=== PATIENT | female | born 1960 | race Caucasian/White ===

== ENCOUNTER 2023-04-14 14:42 | Outpatient (OUT) | payer MEDICARE, OTHER, SELFPAY | END 2023-04-14 14:43 | disposition home or self-care (01) | LOC: PST 14:42 | PROVIDERS: Visit Provider Surgery | DX: Z01.818 Encounter for other preprocedural examination (principal); Z12.11 Encounter for screening for malignant neoplasm of colon ==

== ENCOUNTER 2023-04-15 06:22 | Day surgery (SDC) | payer MEDICARE, OTHER, SELFPAY ==
--- OUTSIDE RECORDS SUMMARY | 2023-04-15 06:26 | XMS_ITS | CCD ---
Author Name Unknown Address [address] [place] [address] Organization [facility] Care Team Providers Care Spanish Literature Professor Name Role Phone OSEAS DELONG Attending Unavailable OSEAS DELONG Consulting Unavailable OSEAS DELONG Admitting Unavailable Arabella Smith Unavailable [phone] Unavailable Unavailable Fadia Bradley Unavailable JOSE BURNETT Attending Unavailable TIMOTHY FREED Attending Unavailable JOSE BURNETT Referring Unavailable RADHIKA TAVERA Attending Unavailable RADHIKA TAVERA Referring Unavailable Allergies Allergy Classification Reported Allergen(s) Allergy Type Date of Onset Reaction(s) Facility (3 sources) House dust mite [facility] Phone: Medications Current Medications Medication Drug Class(es) Dates Sig (Normalized) Sig (Original) atorvastatin 20 mg oral tablet (1 source) HMG-CoA Reductase Inhibitor take 1 tablet by mouth every twenty-four hours Atorvastatin Calcium 20 MG 1 tablet Orally Once a day Active cholecalciferol 1.25 mg oral capsule (1 source) Vitamin D take 1 capsule by mouth every other week Vitamin D3 1.25 MG (31675 UT) 1 capsule Orally every 2 weeks Active meloxicam 15 mg oral tablet (1 source) Nonsteroidal Anti-inflammatory Drug take 1 tablet by mouth every twenty-four hours Meloxicam 15 MG 1 tablet Orally Once a day Active methylPREDNISolone 4 mg oral tablet (1 source) Corticosteroid Start: 3 methylPREDNISolone 4 MG as directed Orally for 6 days Jan, Active Completed/Discontinued Medications Medication Drug Class(es) Dates Sig (Normalized) Sig (Original) amphetamine aspartate 5 mg / amphetamine sulfate 5 mg / dextroamphetamine saccharate 5 mg / dextroamphetamine sulfate 5 mg oral tablet (3 sources) Central Nervous System Stimulant Adderall 20 MG Oral Tablet Quantity: 0 Refills: 0 Ordered: 28-Dec-2020 DO Active Glucosamine (3 sources) Glucosamine TABS Quantity: 0 Refills: 0 Ordered: 28-Dec-2020 DO Active Ketorolac (4 sources) Nonsteroidal Anti-inflammatory Drug, Cyclooxygenase Inhibitor Start: 05-24-2019 Toradol per 15 mg May, 30 mg Start: 05-14-2018 Toradol per 15 mg May, 30 mg Start: 03-31-2017 Toradol per 15 mg Mar, Start: 11-14-2016 Toradol per 15 mg Nov, 30 mg Methylphenidate (1 source) Central Nervous System Stimulant Concerta Not-Taking/ PRN Triamcinolone (5 sources) Corticosteroid Start: 05-24-2019 Kenalog -40 mg May, 40 mg Start: 05-14-2018 KENALOG - 10 m g May, 40 mg Start: 03-31-2017 KENALOG - 10 m g Mar, 40 mg Start: 11-14-2016 KENALOG - 10 m g Nov, 40 mg Start: 03-31-2016 KENALOG - 10 m g Mar, 40 mg Problems Problem Classification Problem Date Documented Date Episodic/Chronic Headache; including migraine (1 source) Headache; including migraine; Translations: [HEADACHE UNSPECIFIED] Onset: 03-02-2020 Other connective tissue disease (3 sources) H/O: arthritis; Translations: [Personal history of arthritis] Episodic Other ear and sense organ disorders (3 sources) Mixed conductive AND sensorineural hearing loss; Translations: [Mixed hearing loss, bilateral] Chronic Other ear and sense organ disorders (3 sources) Sensorineural hearing loss, bilateral; Translations: [Sensorineural hearing loss, bilateral] Chronic Other lower respiratory disease (1 source) Cough; Translations: [COUGH] Onset: 03-02-2020 Episodic Other non-traumatic joint disorders (1 source) Pain in right shoulder Episodic Other upper respiratory infections (1 source) Acute frontal sinusitis, unspecified; Translations: [ACUTE FRONTAL SINUSITIS UNSPECIFIED] Onset: 03-02-2020 Episodic Residual codes; unclassified (1 source) Chills (without fever); Translations: [CHILLS WITHOUT FEVER] Onset: 03-02-2020 Episodic Sprains and strains (1 source) Strain of unspecified muscle, fascia and tendon at shoulder and upper arm level, right arm, initial encounter Episodic Unclassified (4 sources) CONTACT W/AND (SUSP) EXPOS COVID-19; Translations: [CONTACT W/AND (SUSP) EXPOS COVID-19] Onset: 02-28-2020 Results Test Name Value Interpretation Reference Range Facility XR THORACIC SPINE 3 VIEWSon 04-11-2023 XR THORACIC SPINE 3 VIEWS FINDINGS: Comparison, April 06, 2021. Minimal S-shaped scoliosis with minimal rotatory component, unchanged. Thoracic vertebral bodies are normal in height. No fracture, dislocation, or bone lesion. Disc spaces maintained. IMPRESSION: Mild degenerative change thoracic spine with mild S-shaped thoracolumbar scoliosis as discussed. ELECTRONICALLY SIGNED BY: Jersey Clemente MD Normal Not Available CBC (INCLUDES DIFF/PLT)on Basophils (Bld) [#/Vol] 0.06 10*3/uL Normal 0-200 [facility] Comment on above: Performed By: #### 6 399, 08345 #### [facility] [place] [address] Goods Layer: Kedar Ribeiro MD Basophils/100 WBC (Bld) 1.0 % Normal [facility] Comment on above: Performed By: #### 6 399, 13467 #### [facility] [place] [address] Goods Layer: Kedar Ribeiro MD Eosinophils (Bld) [#/Vol] 0.072 10*3/uL Normal 15-500 [facility] Comment on above: Performed By: #### 6 399, 84024 #### [facility] [place] [address] Goods Layer: Kedar Ribeiro MD Eosinophils/100 WBC (Bld) 1.2 % Normal [facility] Comment on above: Performed By: #### 6 399, 00163 #### [facility] [place] [address] Goods Layer: Kedar Ribeiro MD Erythrocyte distribution width (RBC) [Ratio] 12.8 % Normal 11.0-15.0 [facility] Comment on above: Performed By: #### 6 399, 69533 #### [facility] of [place] [address] Goods Layer: Kedar Ribeiro MD Hematocrit (Bld) [Volume fraction] 43.0 % Normal 35.0-45.0 [facility] Comment on above: Performed By: #### 6 399, 82624 #### [facility] [place] [address] Goods Layer: Kedar Ribeiro MD Hemoglobin (Bld) [Mass/Vol] 14.1 g/dL Normal 11.7-15.5 [facility] Comment on above: Performed By: #### 6 399, 52209 #### [facility] [place] [address] Goods Layer: Kedar Ribeiro MD Lymphocytes (Bld) [#/Vol] 1.65 10*3/uL Normal 850-3900 [facility] Comment on above: Performed By: #### 6 399, 05058 #### [facility] [place] [address] Goods Layer: Kedar Ribeiro MD Lymphocytes/100 WBC (Bld) 27.5 % Normal [facility] Comment on above: Performed By: #### 6 399, 49589 #### [facility] [place] [address] Goods Layer: Kedar Ribeiro MD MCH (RBC) [Entitic mass] 29.1 pg Normal 27.0-33.0 [facility] Comment on above: Performed By: #### 6 399, 87864 #### [facility] [place] [address] Goods Layer: Kedar Ribeiro MD MCHC (RBC) [Mass/Vol] 32.8 g/dL Normal 32.0-36.0 [facility] Comment on above: Performed By: #### 6 399, 00375 #### [facility] of [address] [place] [address] Goods Layer: Kedar Ribeiro MD MCV (RBC) [Entitic vol] 88.8 fL Normal 80.0-100.0 [facility] Comment on above: Performed By: #### 6 399, 34747 #### [facility] [place] [address] Goods Layer: Kedar Ribeiro MD Monocytes (Bld) [#/Vol] 0.48 10*3/uL Normal 200-950 [facility] Comment on above: Performed By: #### 6 399, 90408 #### [facility] [place] [address] Goods Layer: Kedar Ribeiro MD Monocytes/100 WBC (Bld) 8.0 % Normal [facility] Comment on above: Performed By: #### 6 399, 70205 #### [facility] [place] [address] Goods Layer: Kedar Ribeiro MD Neutrophils (Bld) [#/Vol] 3.738 10*3/uL Normal 9741-0955 [facility] Comment on above: Performed By: #### 6 399, 09776 #### [facility] [place] [address] Goods Layer: Kedar Ribeiro MD Neutrophils/100 WBC (Bld) 62.3 % Normal [facility] Comment on above: Performed By: #### 6 399, 34937 #### [facility] [place] [address] Goods Layer: Kedar Ribeiro MD Platelet mean volume (Bld) [Entitic vol] 10.7 fL Normal 7.5-12.5 [facility] Comment on above: Performed By: #### 6 399, 25939 #### [facility] [place] [address] Goods Layer: Kedar Ribeiro MD Platelets (Bld) [#/Vol] 255 10*3/uL Normal 140-400 [facility] Comment on above: Performed By: #### 6 399, 83357 #### [facility] of [address], [address] [place] [address] Goods Layer: Kedar Ribeiro MD RBC (Bld) [#/Vol] 4.84 10*6/uL Normal 3.80-5.10 [facility] Comment on above: Performed By: #### 6 399, 20039 #### [facility] of [address], [address] [place] [address] Goods Layer: Kedar Ribeiro MD WBC (Bld) [#/Vol] 6.0 10*3/uL Normal 3.8-10.8 [facility] Comment on above: Performed By: #### 6 399, 79938 #### [facility] of [address], [address] [place] [address] Goods Layer: Kedar Ribeiro MD [facility] METABOLIC [facility] 12-27-2022 Albumin [Mass/Vol] 4.2 g/dL Normal 3.6-5.1 [facility] Comment on above: Order Comment: FASTI NG:NO FASTING: NO Performed By: #### 6 399, 78663 #### [facility] [place] [address] Goods Layer: Kedar Ribeiro MD Albumin/Globulin [Mass ratio] 1.9 {ratio} Normal 1.0-2.5 [facility] Comment on above: Order Comment: FASTI NG:NO FASTING: NO Performed By: #### 6 399, 08630 #### [facility] of [address], [address] [place] [address] Goods Layer: Kedar Ribeiro MD ALP [Catalytic activity/Vol] 117 U/L Normal 37-153 [facility] Comment on above: Order Comment: FASTI NG:NO FASTING: NO Performed By: #### 6 399, 99398 #### [facility] of [address], [address] [place] [address] Goods Layer: Kedar Ribeiro MD ALT [Catalytic activity/Vol] 19 U/L Normal 6-29 [facility] Comment on above: Order Comment: FASTI NG:NO FASTING: NO Performed By: #### 6 399, 22114 #### [facility] [address], [address] [place] [address] Goods Layer: Kedar Ribeiro MD AST [Catalytic activity/Vol] 18 U/L Normal 10-35 [facility] Comment on above: Order Comment: FASTI NG:NO FASTING: NO Performed By: #### 6 399, 81521 #### [facility] [address], [address] [place] [address] Goods Layer: Kedar Ribeiro MD Bilirubin [Mass/Vol] 0.4 mg/dL Normal 0.2-1.2 [facility] Comment on above: Order Comment: FASTI NG:NO FASTING: NO Performed By: #### 6 399, 73369 #### [facility] [address], [address] [place] [address] Goods Layer: Kedar Ribeiro MD BUN/CREATININE RATIO SEE NOTE: Normal 08-01 [facility] Comment on above: Order Comment: FASTI NG:NO FASTING: NO Result Comment: Not Reported: BUN and Creatinine are within reference range. Performed By: #### 6 399, 58148 #### [facility] [place] [address] Goods Layer: Kedar Ribeiro MD Calcium [Mass/Vol] 9.4 mg/dL Normal 8.6-10.4 [facility] Comment on above: Order Comment: FASTI NG:NO FASTING: NO Performed By: #### 6 399, 93581 #### [facility] [place] [address] Goods Layer: Kedar Ribeiro MD Chloride [Moles/Vol] 107 mmol/L Normal 98-110 [facility] Comment on above: Order Comment: FASTI NG:NO FASTING: NO Performed By: #### 6 399, 76700 #### [facility] [address], [address] [place] [address] Goods Layer: Kedar Ribeiro MD CO2 [Moles/Vol] 28 mmol/L Normal 20-32 [facility] Comment on above: Order Comment: FASTI NG:NO FASTING: NO Performed By: #### 6 399, 22572 #### [facility] [place] [address] Goods Layer: Kedar Ribeiro MD Creatinine [Mass/Vol] 0.83 mg/dL Normal 0.50-1.05 [facility] Comment on above: Order Comment: FASTI NG:NO FASTING: NO Performed By: #### 6 399, 71187 #### [facility] [place] [address] Goods Layer: Kedar Ribeiro MD GFR/1.73 sq M.predicted among non-blacks MDRD (S/P/Bld) [Vol rate/Area] 79 mL/min/{1.73_m2} Normal > OR = 60 [facility] Comment on above: Order Comment: FASTI NG:NO FASTING: NO Performed By: #### 6 399, 48753 #### [facility] [place] [address] Goods Layer: Kedar Ribeiro MD Globulin (S) [Mass/Vol] 2.2 g/dL Normal 1.9-3.7 [facility] Comment on above: Order Comment: FASTI NG:NO FASTING: NO Performed By: #### 6 399, 61184 #### [facility] [place] [address] Goods Layer: Kedar Ribeiro MD Glucose [Mass/Vol] 105 mg/dL Normal 65-139 [facility] Comment on above: Order Comment: FASTI NG:NO FASTING: NO Result Comment: Non-fasting reference interval For someone without known diabetes, a glucose value between 100 and 125 mg/dL is consistent with prediabetes and should be confirmed with a follow-up test. Performed By: #### 6 399, 39357 #### [facility] [place] [address] Goods Layer: Kedar Ribeiro MD Potassium [Moles/Vol] 4.2 mmol/L Normal 3.5-5.3 [facility] Comment on above: Order Comment: FASTI NG:NO FASTING: NO Performed By: #### 6 399, 44703 #### [facility] [place] [address] Goods Layer: Kedar Ribeiro MD Protein [Mass/Vol] 6.4 g/dL Normal 6.1-8.1 [facility] Comment on above: Order Comment: FASTI NG:NO FASTING: NO Performed By: #### 6 399, 42772 #### [facility] [place] [address] Goods Layer: Kedar Ribeiro MD Sodium [Moles/Vol] 142 mmol/L Normal 135-146 [facility] Comment on above: Order Comment: FASTI NG:NO FASTING: NO Performed By: #### 6 399, 43377 #### [facility] [place] [address] Goods Layer: Kedar Ribeiro MD Urea nitrogen [Mass/Vol] 15 mg/dL Normal 7-25 [facility] Comment on above: Order Comment: FASTI NG:NO FASTING: NO Performed By: #### 6 399, 82501 #### [facility] [place] [address] Goods Layer: Kedar Ribeiro MD Lipid Panelon 06-15-2021 Cholesterol [Mass/Vol] 316 mg/dL High 125-200 [facility] Comment on above: Result Comment: Low risk < 200mg/dL Borderline risk 201-239 mg/dl High risk > or equal to 240 Performed By: #### L IPD #### [facility] [address] [place] [id number] Cholesterol in HDL [Mass/Vol] 68 mg/dL Normal >40 [facility] Comment on above: Result Comment: High Cardiovascular Risk HDL <40 mg/dL Low Cardiovascular Risk HDL > or equal to 60 mg/dl Performed By: #### L IPD #### [facility] [address], [place] [id number] Cholesterol in LDL [Mass/Vol] 209 mg/dL Normal [facility] Specialist Comment on above: Result Comment: LDL ATP III CLASSIFICATION LDL less than 100 mg/dl Optimal LDL 100-129 mg/dl Near or above optimal LDL 130-159 Borderline high LDL 160-189 High LDL greater than 189 mg/dl Very High Performed By: #### L IPD #### [facility] [address] [place], [place] [id number] Cholesterol in VLDL [Mass/Vol] 39 mg/dL Normal [facility] Comment on above: Performed By: #### L IPD #### [facility] [address] [place], [place] [id number] Cholesterol.total/C holesterol in HDL [Mass ratio] 5 {ratio} Normal [facility] Comment on above: Performed By: #### L IPD #### [facility] [address] [place], [place] [id number] Triglyceride [Mass/Vol] 194 mg/dL High 30-150 [facility] Comment on above: Result Comment: TRIG ATPIII CLASSIFICATIONS TRIG less than 150 mg/dl Normal TRIG 150-199 mg/dl Borderline High TRIG 200-500 mg/dl High TRIG greather than 500 mg/dl Very High Performed By: #### L IPD #### [facility] [address] [place], [place] [id number] Q - Aged based pap with appr opriate addition of HPVon 06-15-2021 COMMENT SEE NOTE Normal [facility] Comment on above: Order Comment: [facility] at: [facility], [address] [place] [address], [address] [place] [address] - [place], [address], Top Ironer: Kedar Ribeiro MD [facility] Date/Time: [facility] Results Received Date/Time: [facility] Reported Date/Time: FASTING: NO Result Comment: This order for age-based cervical cancer and STI screening follows ACOG guidelines(PB 168, 140, AVG797). See individual assays for performing site location. Performed By: #### 9 5814, 89040 #### [facility] [address] [place] [address] Result Comment: EXPL ANATORY NOTE: The Pap is a screening test for cervical cancer. It is not a diagnostic test and is subject to false negative and false positive results. It is most reliable when a satisfactory sample, regularly obtained, is submitted with relevant clinical findings and history, and when the Pap result is evaluated along with historic and current clinical information. Q - THINPREP(R) TIS AND HPV MRNA E6/E7 RFL HPV 16/18/45on 06-15-2021 CLINICAL INFORMATION: None given Normal [facility] Comment on above: Order Comment: [facility] performed at: [facility], [address] [place] [address], [address] [place] [address], [address] [place] [address], Top Ironer: Kedar Ribeiro MD [facility] Date/Time: [facility] Received Date/Time: [facility] Reported Date/Time: FASTING: NO Performed By: #### 9 1384, 82656 #### [facility] [address] [place] [address] COMMENT: SEE NOTE Normal [facility] Comment on above: Order Comment: [facility] performed at: [facility], [address] [place] [address], [address] [place] [address], [address] [place] [address], Top Ironer: Kedar Ribeiro MD [facility] Date/Time: [facility] Received Date/Time: [facility] Reported Date/Time: FASTING: NO Result Comment: This Pap test has been evaluated with computer assisted technology. Parabasal cells in smears that lack maturation due to atrophy or other hormonal reasons cannot be differentiated from transformation zone cells. Accordingly, presence or absence of endocervical or transformation zone components cannot be reported in this patient. Performed By: #### 9 1384, 47741 #### [facility] [address] [place] [address] DIRECTIONAL DRILL OPERATOR: SEE NOTE Normal [facility] Comment on above: Order Comment: [facility] performed at: [facility], [address] [place] [address], [address] [place] [address], [address] [place] [address], Top Ironer: Kedar Ribeiro MD [facility] Date/Time: [facility] Received Date/Time: [facility] Reported Date/Time: FASTING: NO Result Comment: DMK, CT(ASCP) CT screening location: [place] [address]. Performed By: #### 9 1384, 70357 #### [facility] [address] [place] [address] HPV mRNA E6/E7 Not detected Normal Not Detected [facility] Comment on above: Order Comment: [facility]: [facility], [address] [place] [address], Top Ironer: Kedar Ribeiro MD [facility] Date/Time: [facility] Received Date/Time: [facility] Reported Date/Time: FASTING: NO Result Comment: Meth odology: All Source Intelligence Technician-Mediated Amplification This assay detects E6/E7 viral messenger RNA (mRNA) from 14 high-risk HPV types (16,18,31,33,35,39,45,51,52,56,58,59,66,68). The analytical performance characteristics of this assay have been determined by [facility]. The modifications have not been cleared or approved by the FDA. This assay has been validated pursuant to the CLIA regulations and is used for clinical purposes. For additional information, please refer to http://education.ME911.[place]/faq/GYC914t9 (This link if provided for information/ educational purposes only.) Performed By: #### 9 1384, 84151 #### [facility] [address] [place] [address] INTERPRETATION/RESU LT: SEE NOTE Normal [facility] Comment on above: Order Comment: [facility] performed at: [facility], [address] [place] [address], [address] [place] [address], Top Ironer: Kedar Ribeiro MD [facility] Date/Time: [facility] Results Received Date/Time: [facility] Reported Date/Time: FASTING: NO Result Comment: Nega tive for intraepithelial lesion or malignancy. Atrophic pattern; predominantly parabasal cells Performed By: #### 9 1384, 88938 #### [facility] [address] [place] [address] LMP: None given Normal [facility] Comment on above: Order Comment: [facility] performed at: [facility], [address] [place] [address], [address] [place] [address], [address] [place] [address], Top Ironer: Kedar Ribeiro MD [facility] Date/Time: [facility] Received Date/Time: [facility] Reported Date/Time: FASTING: NO Performed By: #### 9 1384, 82195 #### [facility] [address] [place] [id number] PREV. BX: None given Normal [facility] Comment on above: Order Comment: [facility] performed at: [facility], [address] [place] [address], [address] [place] [address], [address] [place] [address], Top Ironer: Kedar Ribeiro MD [facility] Date/Time: [facility] Received Date/Time: [facility] Reported Date/Time: FASTING: NO Performed By: #### 9 1384, 64350 #### [facility] [address] [place] [id number] PREV. PAP: None given Normal [facility] Comment on above: Order Comment: [facility] performed at: [facility], [address] [place] [address], [address] [place] [address], [address] [place] [address], Top Ironer: Kedar Ribeiro MD [facility] Date/Time: [facility] Received Date/Time: [facility] Reported Date/Time: FASTING: NO Performed By: #### 9 1384, 71089 #### [facility] [address] [place] [address] SOURCE: None given Normal [facility] Comment on above: Order Comment: [facility] performed at: [facility], [address] [facility], [address] [place] [address] - [address] , [place], [address], Top Ironer: Kedar Ribeiro MD [facility] Date/Time: [facility] Received Date/Time: [facility] Reported Date/Time: FASTING: NO Performed By: #### 9 1384, 81034 #### [facility] [address] [place] [address] XR Chest 2 Views*on 06-16-19 22 XR Chest 2 Views* HISTORY: Cough, ches t congestion FINDINGS: Mild peribronchial cuffing is present, which may suggest bronchitis. No focal infiltrates or worrisome mass lesions are seen. No pneumothorax is present. Mild right lower lobe subsegmental atelectasis. Cardiac silhouette, skeletal structures and soft tissues are unremarkable. IMPRESSION: 1. Peribronchial appearance, which at this age can be a nonspecific finding. In the appropriate clinical setting, bronchitis may be considered. 2. No alveolar infiltrates or parenchymal consolidation. Report reported and signed by Reza Kilgore on 06/15/2021 1059 Normal [facility] SCREENING MAMMOGRAM W/JESSY, BILATERAL*on 04-06-2021 SCREENING MAMMOGRAM W/JESSY, BILATERAL* COMPARISON: Dating back to February 18, 2020 and October 01, 2018 TECHNIQUE: 2D and 3D Tomosynthesis of the right and left breasts was performed. FINDINGS: Breast composition demonstrates scattered fibroglandular densities. Stable. Typically benign calcifications. No suspicious microcalcifications, asymmetry, architectural distortion or associated features are present. IMPRESSION: BI RADS 2 : BENIGN MAMMOGRAM Board Certified Radiologist. Accredited by the ACR and FDA. MAMMOGRAPHY IS VERY IMPORTANT TO YOUR HEALTH. THE CURRENT [employer] GUIDELINES RECOMMENDS ANNUAL MAMMOGRAPHY BEGINNING AT AGE 40. THIS FACILITY USES A REMINDER SYSTEM TO ENSURE ALL PATIENTS RECEIVE REMINDER NOTIFICATIONS AT THE APPROPRIATE TIME BASED ON THE RECOMMENDATIONS OF THIS EXAM. Report reported and signed by Reza Kilgore on 04/06/2021 1040 Normal [facility] XR Spine Thoracic 3 Views*on 04-06-2021 XR Spine Thoracic 3 Views* FINDINGS: Thoracolumbar scoliosis, apex leftward at T10 and rightward at L2 (both approximating 15 degrees). Minimal rotatory component. No fracture. Mild end plate sclerosis within primarily the mid thoracic region and thoracolumbar junction. IMPRESSION: 1. Mild scoliosis, arthritis. 2. No fracture. Report reported and signed by Reza Kilgore on 04/06/2021 1044 Normal [facility] Established Visit (Otolaryng ology)on 12-28-2020 Established Visit (Otolaryngology) Diagnoses/Problems Bilateral sensorineural hearing loss (389.18) (H90.3) Orders Tobacco Use Screening; Status:Complete; Done: 28Dec2020 Provider Impressions Left-sided mixed hearing loss Right mild sensorineural hearing loss Bilateral eustachian tube dysfunction Discussed with the patient on exam there is no significant fluid or significant retraction. I do think she has mild bilateral eustachian tube dysfunction. In terms of her hearing loss profile, my recommendation is to consider hearing amplification using hearing aids. We generated a referral for that today she is medically cleared to use the hearing aids. If the problems worsen in the left ear then we did discuss possibility of a tympanostomy tube in that ear Chief Complaint hearing loss History of Present IllnessThis patient has been referred for further evaluation of progressive hearing loss. She has a history of tympanostomy tubes as a child. In recent years she has noticed progressive hearing decline mainly in the left ear. She does struggle to communicate and feels like there is significant hearing handicap. She denies any drainage, otorrhea, vertigo or dizziness Review of Systems A comprehensive 10-point review of systems was obtained including constitutional, neurological, HEENT, pulmonary, cardiovascular, genito-urinary, and other pertinent systems and was negative except as noted in the HPI. 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) (H90.A32) Past Medical History History of arthritis (V13.4) (Z87.39) Surgical History History of Anterior cruciate ligament repair History of Appendectomy History of Ear pressure equalization tube insertion bilateral History of Hysterectomy History of Knee replacement History of Tonsillectomy with adenoidectomy Family History Family history of Family history of cardiac pacemaker (V17.49) (Z82.49) Family history of diabetes mellitus (V18.0) (Z83.3) Family history of Family history of Heart problem Family history of Family history of arthritis (V17.7) (Z82.61) Family history of cystic fibrosis (V18.19) (Z83.49) Family history of Lupus Social History Drinks wine (V49.89) (Z78.9) Never smoked cigarettes (V49.89) (Z78.9) Retired from employment Allergies No Known Drug Allergies Recorded By: Ofe Shaver; 12/28/2020 3:20:14 PM Dust Mite Recorded By: Ofe Shaver; 12/28/2020 3:20:14 PM Current Meds Medication NameInstruction Adderall 20 MG Oral Tablet Glucosamine TABS Vitals Vital Signs Recorded: 28Dec2020 03:51PM Vwjijutcdma52.1 F Height5 ft 3 in Ckdepr995 lb BMI Fwhewlpqje43.39 kg/m2 BSA Calculated1.71 Tobacco Useb) No Fall Screeninga) No falls within the last year Pain Scale0/10 Physical Exam Constitutional Vitals as documented above General Appearance: normal development, appropriate nutrition, body habitus, and grooming. 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 Otoscopic Exam: Right EAC patent without disease, TM intact without perforation, retraction, infection, or effusion, appropriate mobility. Left EAC patent without disease, TM intact without perforation, retraction, infection, or effusion, appropriate mobility. Assessment of hearing: See audiogram below Nose, Mouth and Throat Nasal inspection:deferred due to COVID Inspection of lips, teeth, gums: deferred due to COVID Examination of oropharynx: deferred due to COVID Pharyngeal grady: deferred due to COVID Mirror exam of larynx: deferred Mirror exam of nasopharynx: deferred Neck Neck exam: no masses, normal appearance and symmetry, normal tracheal position, no crepitus Thyroid exam: no enlargement, tenderness or mass palpated Respiratory Inspection of chest: symmetric, normal expansion and effort Cardiovascular Observation or peripheral vascular system: no obvious swelling or edema Lymphatic Palpation of lymph nodes in neck: no significant adenopathy palpated Neurologic Orientation to time, place, person appropriate Mood and affect: appropriate CN assessment II-XII shows no deficits bilaterally Results/Data I reviewed her audiogram which shows mild to moderate left-sided mixed hearing loss with preserved speech recognition score of 92% on the right side she has mild sensorineural hearing loss with speech recognition score of 100% 'Scores and Scales' Signatures Electronically signed by : Zain Luciano MD; Nov (more content not included)... Normal [facility] Visit (Audiology)on 02-28-2020 Follow-up visit Diagnoses/Problems Mixed conductive and sensorineural hearing loss of left ear with restricted hearing of right ear (389.22) (H90.A32) Bilateral sensorineural hearing loss (389.18) (H90.3) Patient Discussion/Summary Today's results were discussed with Uday indicating a mild to moderate sensorineural hearing loss in the right ear and a moderate mixed hearing loss in the left ear. Excellent word understanding and normal tympanograms bilaterally. Treatment Plan: 1. Follow-up with ENT 2. Retest hearing in conjunction with medical management 3. Consider binaural amplification [id number] Chief Complaint hearing test Adult Risk ScreeningThere are no spiritual/cultural practices/values/need s that are important to know Initial Fall Risk Screening: Screening not indicated for medical reasons. Reference Documentation See scanned note Procedure Note: audiogram. History of Present Illness Uday, 60 years old, was seen for a hearing test prior to an appointment with Dr. Luciano. She reports a history of hearing loss for several decades worse in the left ear. She reports having pressure-equalization tubes placed as a child. She reports constant chirping tinnitus that is bothersome. She reports her family notices her hearing loss. She denies vertigo. 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 Patient's preferred language: Uzbek Preferred language of the parent, legal guardian or surrogate decision-maker of this minor or incapacitated patient: Not Applicable No overt signs of domestic violence/neglect/abus e. No referral made to Basic Acoustic Analyst. Pain not interfering with optimal level of function or ability to assess and/or treat. Pain Scale rank: 0/10 Pain Scale used: Numeric No referral made to primary care provider (PCP). Factors/Barriers influencing patient's ability to complete assessment or learn: none. Person taught: patient. Readiness to learn: no barriers. Results of Teaching/Counseling: verbalize recall / understanding and teaching complete. Procedure Otoscopy revealed mild debris with visible tympanic membranes, bilaterally. Tympanometry: Right Ear: Normal middle ear function with normal ear canal volume, peak pressure, and hyper compliance. Left Ear: Normal middle ear function with normal ear canal volume, peak pressure, and hyper compliance. Ipsilateral Acoustic Reflexes: could not maintain seal Behavioral Hearing Evaluation: Right Ear: mild to moderate sensorineural hearing loss. Excellent word understanding (100%) at 70 dB HL. Left Ear: moderate mixed hearing loss. Excellent word understanding (92%) at 80 dB HL. Speech tunnel heading supervisor threshold (30 dB HL in the right and 50 dB HL in the left) in agreement with pure tone averages. Signatures Electronically signed by : Yoana Oropeza,RUBÉN-A; Dec 28 2020 2:26PM EST (Author) Normal [employer] Tobacco Screening.on 021 Fall risk assessment a) No falls within the last year ES-Zitdvnenw-Fni tlake 2460 Work Phone: Tobacco use status CP b) No BB-Iuknxjoap-Zac tlake 2460 Work Phone: XR thoracic spine 3V*on 09-11 XR thoracic spine 3V* [facility] Main [place] [address] [place] [address] XRay Report Signed Patient: Uday Byrd MR#: [id number] : 1960 Acct:[id number] Age/Sex: 60 / F ADM Date: 10/07/20 Loc: XDUCLY Room: Type: [facility] Attending Dr: Lacey العلي Ordering Provider: LACEY MANDUJANO Date of Service: 10/07/20 XR/XR thoracic spine 3V*: Mid back pain Copies to: LACEY MANDUJANO TREE WRAPPER-C Thoracic spine 10/07/2020. CLINICAL DATA: Mid back pain after fall. FINDINGS: 3 views of the thoracic spine were obtained. There is mild lower thoracic spinal curvature. Vertebral alignment is normal. Mild disc space narrowing and discovertebral degenerative changes are identified. No acute vertebral fracture is seen. No paraspinal soft tissue mass is noted. XR/XR thoracic spine 3V* IMPRESSION: Mild curvature and degenerative changes. No acute bony abnormality. Impression dictated by: Panchito Sales Jr., M.D.10/07/2020 12:53 PM Dictation Location: [place] [address] Transcribed By: [facility] 10/07/20 1253 Dictated By: Panchito Sales Jr, MD 10/07/20 1251 Signed By: 10/07/20 1253 [facility] Covid-19 PCR (CVDTBH)on 02-10 Covid-19 PCR NOT DETECTED Normal NOT DETECTED [facility] Comment on above: Result Comment: This test is not yet approved or cleared by the [place] FDA. When there are no FDA-approved or cleared tests available, and other criteria are met, FDA can make tests available under an emergency access mechanism called an Emergency Use Authorization (EUA). The EUA for this test is supported by the [place] of Health and Human Service's (HHS's) declaration that circumstances exist to justify the emergency use of in vitro diagnostics for the detection and/or diagnosis of the virus that causes COVID-19. This EUA will remain in effect (meaning this test can be used) for the duration of the COVID-19 declaration justifying emergency of IVDs, unless it is terminated or revoked by FDA (after which the test may no longer be used). Performed By: #### [facility] #### [facility] [address] [place] [address] Gio Suazo EUA Statement SEE BELOW Normal [facility] Comment on above: Result Comment: This test is not yet approved or cleared by the [place] FDA. When there are no FDA-approved or cleared tests available, and other criteria are met, FDA can make tests available under an emergency access mechanism called an Emergency Use Authorization (EUA). The EUA for this test is supported by the Senior Security Analyst of Health and Human Service?s (HHS?s) declaration that circumstances exist to justify the emergency use of in vitro diagnostics for the detection and/or diagnosis of the virus that causes COVID-19. This EUA will remain in effect (meaning this test can be used) for the duration of the COVID-19 declaration justifying emergency of IVDs, unless it is terminated or revoked by FDA (after which the test may no longer be used). When diagnostic testing is negative, the possibility of a false negative should be considered in the context of a patients recent exposures and the presence of clinical signs and symptoms consistent with SARS-CoV-2. Performed By: #### C [facility] #### [facility] [address] [place] [address] Gio Lakeisha Vital Signs Date Time Vital Sign Value Performing Clinician Facility 02-09-2023 14:50-0500 Body height 160.02 cm Fadia Bradley Other [employer] Other 02-09-2023 14:50-0500 Body mass index (BMI) [Ratio] 29.72 kg/m2 Fadia [employer] Other [employer] Other 02-09-2023 14:50-0500 Body temperature 95.9 [degF] Fadia Bradley Other [employer] Other 02-09-2023 14:50-0500 Body weight 76.11 kg Fadia Bradley Other [employer] Other 02-09-2023 14:50-0500 Diastolic blood pressure 87 mm[Hg] Fadia Bradley Other [employer] Other 02-09-2023 14:50-0500 Respiratory rate 16 /min Fadia Bradley Other [employer] Other 02-09-2023 14:50-0500 SaO2% (BldA) [Mass fraction] 94 % Fadia Bradley Other [employer] Other 02-09-2023 14:50-0500 Systolic blood pressure 154 mm[Hg] Fadia Bradley Other [employer] Other 12-28-2020 15:51-0500 Body height 160.02 cm Arabella Smith Work Phone: JN-Oxrdsvwhu-Xjiihmy e 2460 Work Phone: 12-28-2020 15:51-0500 Body mass index (BMI) [Ratio] 26.39 kg/m2 Arabella Smith Work Phone: DJ-Ycsttpqys-Kzdakid e 2460 Work Phone: 12-28-2020 15:51-0500 Body surface area Derived from formula 1.71 m2 Arabella Smith Work Phone: WD-Sftgijsuz-Jmfjryr e 2460 Work Phone: 12-28-2020 15:51-0500 Body temperature 97.1 [degF] Arabella Smith Work Phone: YX-Iaahtgmxx-Sdffzos e 2460 Work Phone: 12-28-2020 15:51-0500 Body weight 67.59 kg Arabella Smith Work Phone: QJ-Eomdocahj-Omufcdu e 2460 Work Phone: 12-28-2020 15:51-0500 0 1 Arabella Smith Work Phone: LU-Zfdmpskat-Emstekj e 2460 Work Phone: Comment on above: [employer] Encounters Encounter Date Encounter Type Care Provider Facility Start: 04-11-2023 End: 04-11-2023 ambulatory RADHIKA TAVERA Not Available Start: 04-09-2023 End: 04-09-2023 ambulatory TIMOTHY FREED Not Available Start: 04-02-2023 End: 04-02-2023 ambulatory JOSE BURNETT Not Available Start: 02-09-2023 End: 02-09-2023 ambulatory Fadia Bradley Other [employer] Other Start: 02-09-2023 Office outpatient vi sit 25 minutes Fadia Bradley [facility] Start: 12-28-2020 Office outpatient ne w 30 minutes Arabella Smith Work Phone: SX-Kqjllqqjyolwgf-Dsadqk ke Work Phone: Start: 12-28-2020 Patient encounter procedure Arabella Smith Work Phone: JS-Tbewwezqdyziyc-Hgmydt ke Work Phone: Start: 12-28-2020 [facility] visit new patient Osorio Smith Work Phone: HX-Vfkcdudmd-Upvlnlah 2460 Work Phone: Start: 02-28-2020 End: 02-28-2020 Patient encounter procedure [facility] Facility: Procedures Date Procedure Procedure Detail Performing Clinician Appendectomy Arabella roberson Work Phone: Arthroplasty of knee Osorio Smith Work Phone: Hysterectomy Arabella roberson Work Phone: Myringotomy and inse rtion of T tube Arabella Smith Work Phone: Repair of anterior c ruciate ligament of knee joint Arabella Smith Work Phone: Tonsillectomy and adenoidectomy Arabella Smith Work Phone: Payers Date Payer Category Payer Medicare [id number] 2023 Unknown [id number] 1961 Unknown [id number] 1960 Unknown [id number] 2.16.84 [id number] 1960 Unknown [id number] 2.16.84 [id number] 1960 Unknown [id number] 2.16.84 [id number] 1960 Unknown [id number] 2.16.84 [id number] 1960 Unknown [id number] 2.16.84 [id number] Unknown COMMERCIAL Unknown [id number] 2.16.8 [id number] Social History Date Type Detail Facility Drinks wine Drinks wine BF-Otkigltmr-Em st[place] 3747 Work Phone: Sex Assigned At Sex Assigned At [facility] th [employer] Other Evaluation note 02-09-2023 Note Date & Type Note Facility 02-09-2023 Evaluation note Encounter Date Diagnosis Assessment Notes Jan, Acute pain of right shoulder (ICD-10 - M25.511) Jan, Strain of right shoulder, initial encounter (ICD-10 - S46.911A) Discussed diagnosis with patient today in office. No imaging performed today. Advised patient that she likely has some brachial plexus inflammation secondary to shoulder strain. Will send in Rx of Medrol Dosepak to use as directed. Use OTC Tylenol in addition as needed, heat/ice application, perform activities as tolerated. Follow up with PCP in 1 week if symptoms do not improve. Immediate evaluation in ER for signs/symptoms as discussed. Patient verbalizes understanding and is agreeable with treatment plan [employer] Other Clinical Note 11-29-2021 Note Date & Type Note Facility 11-29-2021 Note HISTORY: Bilateral t innitis, hearing loss, worsening double vision PROCEDURE: Multiplanar, multisequence imaging including routine T1, T2 without contrast. FINDINGS: No worrisome intra- or extra-axial mass lesions, mass effect or hemorrhage identified. No evidence of major vessel ischemia is noted. Periventricular and subcortical white matter is normal without significant small vessel ischemic or demyelination changes. Ventricular size is normal for this age, and commensurate with the cerebral sulci. Normal signal flow void is present within the major cerebral vessels. Corpus callosum, cynthia, midbrain sellar contents and suprasellar cistern are normal. The 7th and 8th cranial nerve complexes, internal auditory canals are unremarkable. Calvarium, mastoid air cells, paranasal sinuses and orbital contents are unremarkable. IMPRESSION: 1. Normal brain/internal auditory canals 2. Normal paranasal sinuses and mastoid air cells Report reported and signed by Reza Kilgore on 11/29/2021 1135 [facility] Attendant Clinical Note 06-15-2021 Note Date & Type Note Facility 06-15-2021 Note SATISFACTORY FOR EVALUATION [facility] Comment on above: Order Comment: [facility] performed at: [facility], [address] [place] [address], [address] [place] [address] - [place], [address], Top Ironer: Kedar Ribeiro MD [facility] Collection Date/Time: [id number] [facility] Results Received Date/Time: [facility] Reported Date/Time: FASTING: NO Performed By: #### 9 1384, [id number] #### [facility] Default [address] [place] [address] History general Narrative - Reported Note Date & Type Note Facility History general Narrative - Reported Type Medical History ADD Medical History hyperlipidemia Surgical History appendectomy Surgical History T & A Surgical History BILATERAL ACL KNEE SURGERY Surgical History HYSTERECTOMY Hospitalization History SEE ABOVE [employer] Other History of Present illness Narrative Note Date & Type Note Facility History of Present illness Narrative Uday, 60 years old, was seen for a hearing test prior to an appointment with Dr. Luciano. She reports a history of hearing loss for several decades worse in the left ear. She reports having pressure-equalization tubes placed as a child. She reports constant chirping tinnitus that is bothersome. She reports her family notices her hearing loss. She denies vertigo. 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.Patient's preferred language: EnglishPreferred language of the parent, legal guardian or surrogate decision-maker of this minor or incapacitated patient: Not ApplicableNo overt signs of domestic violence/neglect/abuse.No referral made to Basic Acoustic Analyst.Pain not interfering with optimal level of function or ability to assess and/or treat.Pain Scale rank: 0/10Pain Scale used: NumericNo referral made to primary care provider (PCP).Factors/Barriers influencing patient's ability to complete assessment or learn: none.Person taught: patient.Readiness to learn: no barriers.Results of Teaching/Counseling: verbalize recall / understanding and teaching complete. MP-Jqrecqjba-Ciiucerw 9752 Work Phone: History of Present illness Narrative Note Date & Type Note Facility History of Present illness Narrative This patient has been referred for further evaluation of progressive hearing loss. She has a history of tympanostomy tubes as a child. In recent years she has noticed progressive hearing decline mainly in the left ear. She does struggle to communicate and feels like there is significant hearing handicap. She denies any drainage, otorrhea, vertigo or dizziness CZ-Cwiccxgroolixc-Uxoqigvg Work Phone: Summary Purpose Family History No Family History Records FoundUnknown Family Member Name Dates Details : Father, Mother, Si ster Status:Active Heart problem: Father Status:Active Family history of diabetes m ellitus: Mother(V18.0, Z83.3) Status:Active Family history of cardiac pa cemaker: Mother(V17.49, Z82.49) Status:Active Family history of cystic fib rosis: Sister(V18.19, Z83.49) Status:Active Family history of arthritis: Sister(V17.7, Z82.61) Status:Active Lupus: Sister Status:Active Unknown Family Member Name Dates Details : Father, Mother, Si ster Status:Active Heart problem: Father Status:Active Family history of diabetes m ellitus: Mother(V18.0, Z83.3) Status:Active Family history of cardiac pa cemaker: Mother(V17.49, Z82.49) Status:Active Family history of cystic fib rosis: Sister(V18.19, Z83.49) Status:Active Family history of arthritis: Sister(V17.7, Z82.61) Status:Active Lupus: Sister Status:Active Unknown Family Member Name Dates Details Lupus: Sister Status:Active Family history of arthritis: Sister(V17.7, Z82.61) Status:Active Family history of cystic fib rosis: Sister(V18.19, Z83.49) Status:Active Family history of cardiac pa cemaker: Mother(V17.49, Z82.49) Status:Active Family history of diabetes m ellitus: Mother(V18.0, Z83.3) Status:Active Heart problem: Father Status:Active : Father, Mother, Si ster Status:Active Advance Directives No Advanced Directives Records FoundNo Advanced Directives Records FoundNo Advanced Directives Records FoundNo Advanced Directives Records FoundNo Advanced Directives Records FoundNo Advanced Directives Records Found Chief Complaint hearing testhearing loss Additional Source Comments INFORMATION SOURCE (unrecogn ized section and content) DATE CREATED AUTHOR 03/04/2020 [facility] DATE CREATED AUTHOR AUTHOR'S ORGANIZ ATION 01/11/2021 [employer] DATE CREATED AUTHOR AUTHOR'S ORGANIZ ATION 03/27/2021 [facility] DATE CREATED AUTHOR AUTHOR'S ORGANIZ ATION 12/03/2021 [facility] dical Specialist DATE CREATED AUTHOR AUTHOR'S ORGANIZ ATION 12/29/2022 [facility] DATE CREATED AUTHOR AUTHOR'S ORGANIZ ATION 04/13/2023 [facility] dical Specialists EPIC REASON FOR VISIT (unrecogniz ed section and content) right shoulder pain radiatin g down FOR RECORDS PERTAINING TO PATIENTS WHO ARE OR HAVE BEEN ENROLLED IN A CHEMICAL DEPENDENCY/SUBSTANCEABUSE PROGRAM, SOME INFORMATION MAY BE OMITTED. This clinical summary was aggregated from multiple sources. Caution should be exercised in using it in the provision of clinical care. This summary normalizes information from multiple sources, and as a consequence, information in this document may materially change the coding, format and clinical context of patient data. In addition, data may be omitted in some cases. CLINICAL DECISIONS SHOULD BE BASED ON THE PRIMARY CLINICAL RECORDS. [employer] provides no warranty or guarantee of the accuracy or completeness of information in this document.
[2023-04-15 06:40] VITALS: BP 162/87; PULSE 70; RESP 16; TEMP 36.3; O2SAT 96; BMI 28.3
[2023-04-15] MEDS: LACTATED RINGER'S SOLUTION 1,000 ML 50 ML IV (06:52)
--- NOTE | 2023-04-15 07:19 | PM.GSPRC ---
Date of procedure: 04/15/23 Indications for Procedure: screening colonoscopy, rectocele Pre-op diagnosis: screening colonoscopy, rectocele Post-op diagnosis: other (descending colon biopsy ) Procedure: colonoscopy with biopsy of descending colon lesion Findings: .8mm flat lesion biopsied Anesthesia: MAC Surgeon: Nitesh Palmer Procedure Summary: The patient was given IV conscious sedation.? The patient's SPO2 remained above 90% throughout the procedure. The colonoscope was inserted per rectum and advanced under direct vision to the cecum with minimal difficulty, the rectocele was challenging to navigate slightly.? The prep was fair. Findings: Cecum/Ascending colon: normal Transverse colon: normal Descending/Sigmoid colon: .8mm flat lesion noted, biopsied with cold snares Rectum/Anus: examined in normal and retroflexed positions and was minimal hemorrhoids Withdrawal Time was (minutes): 15 min The colon was decompressed and the scope was removed.? The patient tolerated the procedure well. Recommendations/Plan: 1.??? Lifestyle and dietary modifications as discussed 2.??? F/U Biopsies 3.??? F/U In Office in 3-4 weeks or will call with biopsy results 4.??? Discussed with the family Estimated blood loss (mL): 1 Specimens: descending colon lesion Pathology: other Condition: stable Disposition: PACU
[2023-04-15 08:22] VITALS: BP 106/74; PULSE 56; RESP 20; TEMP 36.2; O2SAT 99
[2023-04-15 08:52] VITALS: BP 127/77; PULSE 52; RESP 16; O2SAT 96
== END 2023-04-15 08:52 | disposition home or self-care (01) ==
PROVIDERS: Visit Provider Surgery
PROC: (CPT 45380; principal; 2023-04-15 07:30)
DX: Z12.11 Encounter for screening for malignant neoplasm of colon (principal); N81.6 Rectocele; D12.4 Benign neoplasm of descending colon; K59.09 Other constipation; Z90.710 Acquired absence of both cervix and uterus; E78.2 Mixed hyperlipidemia; Z80.0 Family history of malignant neoplasm of digestive organs
CPT/HCPCS: 45380; 88305; 99999; J2704